=== PATIENT | female | born 1935 | race Caucasian/White ===

== ENCOUNTER 2021-12-10 13:04 | Emergency (ER) | payer MEDICARE ==
[~2021-12-10] VITALS: Ht 162.6 cm; Wt 64.0 kg
[2021-12-10 14:02] LABS: BASOPHILS # (AUTO) 0.1 (0.0-0.1); BASOPHILS % 0.7 % (0.0-1.0); EOSINOPHILS # (AUTO) 0.2 (0.0-0.4); EOSINOPHILS % 2.8 % (0.0-6.0); HEMOGLOBIN 13.2 g/dL (12.0-16.0); LYMPHOCYTES # (AUTO) 1.6 (1.0-3.2); MEAN CORPUSCULAR HEMOGLOBIN 30.8 pg (28-32); MEAN CORPUSCULAR VOLUME 93.2 fL (81-99); MONOCYTES # (AUTO) 0.6 (0.2-0.8); MONOCYTES % 7.6 % (4.4-11.3); NEUTROPHILS # (AUTO) 5.1 (2.1-6.9); NEUTROPHILS % 67.5 % (38.7-80.0); PLATELET COUNT 262 x10e3/uL (140-360); RED BLOOD COUNT 4.29 x10e6/uL (3.6-5.1)
[2021-12-10] MEDS ORDERED: MECLIZINE HCL 12.5 MG TAB PO STA (14:13)
[2021-12-10 14:24] LABS: ALBUMIN/GLOBULIN RATIO 1.2 (0.8-2.0); ANION GAP 19.9 mmol/L (8-16); CREATININE, SERUM 1.4 mg/dL (0.57-1.11)
[2021-12-10] MEDS ORDERED: POTASSIUM CHLORIDE 20 MEQ TAB CR PO STA (14:29)
[2021-12-10 14:30] LABS: POTASSIUM 2.9 mmol/L (3.5-5.1)
[2021-12-10 14:34] LABS: CREATINE KINASE MB 2.1 ng/mL (0-5.0)
[2021-12-10] MEDS ORDERED: SODIUM CHLORIDE 0.9% 1000ML 1,000 ML IV STA (14:38)
[2021-12-10 16:55] VITALS: BP 159/89
[2021-12-11] MEDS ORDERED: IOPAMIDOL 370 MG/ML 100 ML INFUS..BTL INJ ONE (05:20)
== END 2021-12-10 16:20 | disposition home or self-care (01) ==
LOC: ER 13:20
DX: R42 Dizziness and giddiness (principal); R94.31 Abnormal electrocardiogram [ECG] [EKG]
CPT/HCPCS: 36415; 70496; 70498; 80053; 82550; 82553; 84484; 85025; 93005; 99283; J7030; J8597; Q9967